=== PATIENT | female | born 1985 | race American Indian/Alaskan Native ===

== ENCOUNTER 2019-02-26 13:06 | Inpatient (IN) | payer MEDICAID ==
[2019-02-26] MEDS ORDERED: BRETHINE IVP PRN (15:13)
[2019-02-26] MEDS ORDERED: XYLOCAINE 2% INFILTRATI ONE (15:13)
[2019-02-26] MEDS ORDERED: MINERAL OIL PO PRN (15:13)
[2019-02-26] MEDS ORDERED: SUBLIMAZE IV PRN (15:13)
[2019-02-26] MEDS ORDERED: BRETHINE SUB-Q PRN (15:13)
--- NOTE | 2019-02-26 15:18 | History and Physical Report ---
History of Present Illness Date of examination: 02/26/19 Date of admission: 02/26/19 13:06 Chief complaint: HERE FOR IOL FOR POST DATES History of present illness: PT PRESENTS FOR IOL FOR POST DATES. SHE HAS NO C/O AT THIS TIME. HAS NOT BEEN COMPLICATED. EDC Calculations LMP: 02/16/2019 EDC Confirmation: 02/16/2019 Gestational Age: 11 5/7 weeks Past History : 6 Term Births: 2 Premature Births: 0 Living Children: 2 Para: 2 Mult. Births: 0 Prev : 0 Aborta: 3 Elect. Ab: 3 # 1 Delivery date: 2006 Weeks Gestation: term Delivery type: Anesthesia type: epidural Delivery location: [place] Infant Sex: Female weight: 7#6 # 2 Delivery date: 2009 Weeks Gestation: term Delivery type: Delivery location: [place] Sex: Male weight: 8#7 # 3 Delivery date: 2011 Weeks Gestation: 6 Delivery type: EAB # 4 Delivery date: 2013 Weeks Gestation: 6 Delivery type: EAB # 5 Delivery date: 2017 Weeks Gestation: 6 Delivery type: EAB Past Medical History: Abnormal Pap Smear: + HVP [facility] 10/2017 Past Surgical History: Negative Past Surgical History Past Medical History 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 of genital herpes: no Partner hx. of genital herpes: no Rash, Viral, or Febrile illness since last LMP? no Varicella/Chicken Pox Status: Unknown Genetic History Congenital Heart Defect: Mom: no Dad: no Nakita Disease: Mom: no Dad: no Thalassemia Mom: no Dad: no Neural Tube Defect Mom: no Dad: no Down's Syndrome Mom: no Dad: no Aquilino-Sachs Mom: no Dad: no Sickle Cell Disease/Trait Mom: no Dad: no Hemophilia Mom: no Dad: no Muscular Dystrophy Mom: no Dad: no Cystic Fibrosis Mom: no Dad: no [place] Chorea Mom: no Dad: no Mental Retardation Mom: no Dad: no Fragile X Mom: no Dad: no Other Genetic/Chromosomal Disorder Mom: no Dad: no Child w/other defect Mom: no Dad: no Enviromental Exposures Xray Exposure: no Medication, drug, or alcohol use since LMP: no Chemical/Other Exposure: no Exposure to Cat Liter: no Hx of Parvovirus (Fifth Disease): no Occupational Exposure to Children: none Active Medications (reviewed today): None Current Allergies (reviewed today): No known allergies Past History Past Medical History: no pertinent history 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 Family/Genetic History: diabetes, other (BREAST CA-MOTHER) Social history: no significant social history - Obstetrical History Expected Date of Delivery: 02/16/19 Actual Gestation: 41 Week(s) 3 Day(s) : 6 Para: 2 Hx # Term Pregnancies: 2 Number of Pregnancies: 0 Spontaneous Abortions: 0 Induced : 3 Number of Living Children: 2 Medications and Allergies Allergies Allergy/AdvReac Type Severity Reaction Status Date / Time coconut oil Allergy Swelling Verified 01/14/15 17:30 Home Medications Medication Instructions Recorded Confirmed Last Taken Type No Known Home Medications [No 05/21/15 05/21/15 Unknown History Reported Home Medications] Review of Systems All systems: negative - Physical Exam Lungs: Positive: Normal air movement Abdomen: Positive: normal appearance, soft. Negative: distention, tenderness, guarding Genitourinary (Female): Positive: normal external genitalia, normal perenium. Negative: perineal/vulvar lesions Vulva: both: normal Deep Tendon Reflex Grade: Normal +2 - Obstetrical FHR: category 1 Cervical Dilatation: 4.5 Cervical Effacement Percentage: 60 station: -1 Uterine Contraction Pattern: Irregular Uterine Tone Measurement Phase: Resting Uterine Contraction Intensity: Mild Results All other labs normal. Assessment and Plan - Patient Problems (1) 41 weeks gestation of Current Visit: Yes Status: Acute Plan to address problem: -ADMITTED FOR POST DATES IOL -IOL D/W PT AND QUESTIONS WERE ADDRESSED AND ANSWERED -START PITOCIN -MEMBRANE SWEEP DONE ON EXAM -GBS NEGATIVE
[2019-02-26] MEDS ORDERED: PITOCin/NS 30 UNIT/500ML 30 UNITS/500 ML BAG IV SCH ×2 (16:00)
[2019-02-26] MEDS ORDERED: LACTATED RINGERS 1,000 ML IV SCH (16:00)
[2019-02-26] MEDS ORDERED: PITOCin/NS 20 UNIT/1000ML DRIP 20 UNITS/1,000 ML BAG IV SCH (16:00)
[2019-02-26 16:14] LABS: Hematocrit 27.2 % (30.3-42.9); Hemoglobin 8.9 gm/dl (10.1-14.3); Mean Corpuscular HGB Conc 33 % (30-34); Mean Corpuscular Volume 83 fl (79-97); Platelet Count 193 K/mm3 (140-440); Red Cell Distribution Width 16.9 % (13.2-15.2)
[2019-02-26] MEDS ORDERED: MARCAINE 0.5% INFILTRATI ONE (18:32)
[2019-02-26] MEDS ORDERED: NARCAN 2 MG/2 ML IV PRN (19:52)
--- NOTE | 2019-02-26 19:52 | Anesthesia Consultation ---
Anesthesia Consult and Med Hx Date of service: 02/26/19 - Airway Anesthetic Teeth Evaluation: Good ROM Head & Neck: Adequate Mental/Hyoid Distance: Adequate Mallampati Class: Class II Intubation Access Assessment: Good - Pulmonary Exam CTA: Yes - Cardiac Exam Cardiac Exam: RRR - Pre-Operative Health Status ASA Pre-Surgery Classification: ASA2 Proposed Anesthetic Plan: Epidural - Pulmonary Hx Asthma: No COPD: No Hx Pneumonia: No - Cardiovascular System Hx Hypertension: No - Central Nervous System Hx Seizures: No Hx Psychiatric Problems: No - Endocrine Hx Renal Disease: No Hx End Stage Renal Disease: No Hx Hypothyroidism: No Hx Hyperthyroidism: No - Hematic Hx Anemia: No Hx Sickle Cell Disease: No
[2019-02-26] MEDS ORDERED: fentaNYL-BUPIV 2 MCG/ML-0.125% 200 MCG/100 ML BAG EPIDURAL SCH (20:00)
--- NOTE | 2019-02-26 21:17 | Progress Note ---
Assessment and Plan - Patient Problems (1) 41 weeks gestation of Current Visit: Yes Status: Acute Plan to address problem: -pitocin only now is being increased and is only on 8mu -con't to increase -epidural in place -anticipate Subjective - Subjective Date of service: 02/26/19 Principal diagnosis: 41 weeks here for iol Interval history: Pt is comfortable with epidural in place. No c/o. Patient reports: new complaints, loss of fluid, movement normal Objective - Vital Signs Vital Signs: Vital Signs - 12hr 02/26/19 02/26/19 02/26/19 15:25 15:29 15:45 Temperature Pulse Rate 73 77 70 Respiratory Rate Blood Pressure 92/60 91/54 101/61 O2 Sat by Pulse Oximetry 02/26/19 02/26/19 02/26/19 16:05 16:14 17:07 Temperature 98.3 F Pulse Rate 74 79 Respiratory Rate Blood Pressure 92/60 90/50 O2 Sat by Pulse Oximetry 02/26/19 02/26/19 02/26/19 17:09 17:15 17:31 Temperature Pulse Rate 63 64 70 Respiratory Rate Blood Pressure 106/70 105/77 115/73 O2 Sat by Pulse Oximetry 02/26/19 02/26/19 02/26/19 17:46 18:00 18:15 Temperature Pulse Rate 72 60 65 Respiratory Rate Blood Pressure 112/62 108/69 126/72 O2 Sat by Pulse Oximetry 02/26/19 02/26/19 02/26/19 18:31 18:42 18:47 Temperature Pulse Rate 80 97 H 73 Respiratory Rate Blood Pressure 127/79 O2 Sat by Pulse 97 100 Oximetry 02/26/19 02/26/19 02/26/19 18:52 18:54 18:57 Temperature Pulse Rate 62 100 H 63 Respiratory Rate Blood Pressure 128/89 109/57 O2 Sat by Pulse 100 89 87 Oximetry 02/26/19 02/26/19 02/26/19 19:00 19:02 19:03 Temperature Pulse Rate 77 67 68 Respiratory Rate Blood Pressure 93/70 105/63 O2 Sat by Pulse 99 Oximetry 02/26/19 02/26/19 02/26/19 19:06 19:12 19:17 Temperature Pulse Rate 81 63 67 Respiratory Rate Blood Pressure 97/57 O2 Sat by Pulse 94 100 100 Oximetry 02/26/19 02/26/19 02/26/19 19:18 19:22 19:27 Temperature Pulse Rate 72 59 L 67 Respiratory Rate Blood Pressure 103/59 O2 Sat by Pulse 91 98 100 Oximetry 02/26/19 02/26/19 02/26/19 19:30 19:32 19:34 Temperature Pulse Rate 61 63 88 Respiratory Rate Blood Pressure 116/62 O2 Sat by Pulse 100 78 L Oximetry 02/26/19 02/26/19 02/26/19 19:37 19:39 19:42 Temperature Pulse Rate 81 73 60 Respiratory Rate Blood Pressure 108/69 O2 Sat by Pulse 85 100 Oximetry 02/26/19 02/26/19 02/26/19 19:43 19:44 19:47 Temperature Pulse Rate 73 75 73 Respiratory Rate Blood Pressure 107/72 O2 Sat by Pulse 88 99 Oximetry 02/26/19 02/26/19 02/26/19 19:48 19:52 19:54 Temperature Pulse Rate 83 82 67 Respiratory Rate Blood Pressure 103/61 93/54 O2 Sat by Pulse 98 Oximetry 02/26/19 02/26/19 02/26/19 19:57 19:58 20:02 Temperature Pulse Rate 87 68 76 Respiratory Rate Blood Pressure 94/55 O2 Sat by Pulse 98 99 Oximetry 02/26/19 02/26/19 02/26/19 20:04 20:07 20:10 Temperature Pulse Rate 66 75 67 Respiratory Rate Blood Pressure 101/59 103/54 O2 Sat by Pulse 97 Oximetry 02/26/19 02/26/19 02/26/19 20:12 20:13 20:16 Temperature Pulse Rate 90 93 H 82 Respiratory 22 Rate Blood Pressure 89/56 103/60 O2 Sat by Pulse 96 Oximetry 02/26/19 02/26/19 02/26/19 20:17 20:22 20:23 Temperature Pulse Rate 93 H 86 93 H Respiratory Rate Blood Pressure 99/62 O2 Sat by Pulse 98 98 Oximetry 02/26/19 02/26/19 02/26/19 20:27 20:31 20:32 Temperature Pulse Rate 65 64 113 H Respiratory Rate Blood Pressure O2 Sat by Pulse 99 92 96 Oximetry 02/26/19 02/26/19 02/26/19 20:34 20:37 20:40 Temperature Pulse Rate 68 55 L 54 L Respiratory Rate Blood Pressure 104/63 101/64 O2 Sat by Pulse 99 Oximetry 02/26/19 02/26/19 02/26/19 20:42 20:44 20:47 Temperature Pulse Rate 66 63 68 Respiratory Rate Blood Pressure 170/70 O2 Sat by Pulse 99 99 Oximetry 02/26/19 02/26/19 02/26/19 20:49 20:52 20:53 Temperature Pulse Rate 59 L 88 76 Respiratory Rate Blood Pressure 94/55 91/53 O2 Sat by Pulse 99 Oximetry 02/26/19 02/26/19 02/26/19 20:57 20:59 21:02 Temperature Pulse Rate 66 62 62 Respiratory Rate Blood Pressure 100/64 O2 Sat by Pulse 99 79 L 100 Oximetry 02/26/19 02/26/19 21:07 21:12 Temperature Pulse Rate 78 63 Respiratory Rate Blood Pressure O2 Sat by Pulse 99 100 Oximetry - Exam FHR: category 1 Cervical Dilatation: 6.5 (arom with clear fluid noted. large amount. head now more applied to the cervix) Cervical Effacement Percentage: 75 station: -1 Uterine Contraction Pattern: Regular Uterine Tone Measurement Phase: Resting Uterine Contraction Intensity: Mild - Labs Labs: Abnormal Labs 02/26/19 15:46 RBC 3.30 L Hgb 8.9 L Hct 27.2 L MCH 27 L RDW 16.9 H Laboratory Results - last 24 hr 02/26/19 02/26/19 15:46 15:46 WBC 6.1 RBC 3.30 L Hgb 8.9 L Hct 27.2 L MCV 83 MCH 27 L MCHC 33 RDW 16.9 H Plt Count 193 Blood Type O POSITIVE Antibody Screen TNR JAREK Antibody Screen Negative
[2019-02-26] MEDS ORDERED: METHERGINE IM ONE ×2 (23:31)
--- NOTE | 2019-02-26 23:43 | Procedure Note ---
OB Delivery Note - Delivery Date of Delivery: 02/26/19 Surgeon: ERMIAS FONTANEZ Estimated blood loss: other (400) - Vaginal Delivery presentation: vertex Delivery position: OA Intrapartum events: uterine atony (relieved with 30 units of pitocin infusing and methergine 0.2mg im times one dose), other(please specify) (change in baseline from 120s to 110s prior to delivery with varible decels noted pt was 10cm at this time) Delivery induction: oxytocin Delivery augmentation: rupture of membranes, pitocin Delivery monitor: external FHT, external uterine Route of delivery: Delivery placenta: spontaneous (intact) Episiotomy: none Delivery laceration: 2nd degree (perineal and periuretral) Delivery repair: vicryl (3-0) Anesthesia: epidural Delivery comments: Delivery as above. With two pushes pt delivered a live born male infant. Ant shoulder and rest of infant delivered w/o difficulty. There was no shoulder dystocia. Infant was placed on maternal abdomen. Cord was clamped x2 after pulsation was no longer palpated. Cord cut by fob. Cord blood was collected. Placenta delivered spontaneously intact. After delivery of placenta pt was noted to have atony of the lower uterine segment relieved with above measures. Repairs done in usual fashion. EBL 400ml - A at 1 minute: 8 at 5 minutes: 9 Infant Gender: Male (8lbs 12oz)
[2019-02-27] MEDS ORDERED: BENADRYL PO PRN (00:03)
[2019-02-27] MEDS ORDERED: ZOFRAN IV PRN (00:03)
[2019-02-27] MEDS ORDERED: LANSINOH TP PRN (00:03)
[2019-02-27] MEDS ORDERED: TYLENOL PO PRN (00:03)
[2019-02-27] MEDS ORDERED: PHENERGAN PO PRN (00:03)
[2019-02-27] MEDS ORDERED: DULCOLAX PR PRN (00:03)
[2019-02-27] MEDS ORDERED: MILK OF MAGNESIA PO PRN (00:03)
[2019-02-27] MEDS ORDERED: TUCKS PAD TP PRN (00:03)
[2019-02-27] MEDS ORDERED: SODIUM CHLORIDE FLUSH SYRINGE 10 ML IV PRN (01:00)
[2019-02-27] MEDS ORDERED: PITOCin/NS 20 UNIT/1000ML DRIP 20 UNITS/1,000 ML BAG IV SCH (01:00)
[2019-02-27] MEDS: IBUPROFEN PO SCH ×2 (01:57→23:37)
[2019-02-27 13:10] LABS: Hematocrit 25.4 % (30.3-42.9); Hemoglobin 8.2 gm/dl (10.1-14.3)
--- NOTE | 2019-02-27 13:21 | Progress Note ---
Assessment and Plan PPD1 s/p . Patient reports feeling well, she denies any complaints or concerns at this time. Fundus is firm, ML, U/1. Vaginal bleeding is small, patient denies any clots or heavy bleeding. She reports pain is well controlled with medications. She reports breast feeding is going well, infant is doing well. Will monitor for results of post delivery H&H. VSSAF. Continue POC. Plan for discharge tomorrow morning. Subjective - Subjective Date of service: 02/27/19 Principal diagnosis: PPD1 s/p Patient reports: appetite normal, voiding normally, pain well controlled, ambulating normally [place]: doing well Objective - Vital Signs Latest vital signs: Vital Signs Temp Pulse Resp BP BP Pulse Ox 02/27/19 11:59 98.3 F 73 18 98/54 98 02/27/19 08:13 97.7 F 82 18 103/40 97 02/27/19 01:32 99.3 F 77 20 105/65 100 02/27/19 00:25 61 111/69 02/27/19 00:20 67 108/56 02/27/19 00:15 64 106/65 02/27/19 00:06 61 114/59 02/27/19 00:00 71 109/57 02/26/19 23:44 81 122/59 02/26/19 23:30 64 103/62 02/26/19 23:20 76 49 L 02/26/19 23:17 70 78 L 02/26/19 23:15 112 H 119/72 88 02/26/19 23:12 73 100 02/26/19 23:07 59 L 99 02/26/19 23:02 61 99 02/26/19 23:00 63 100/67 02/26/19 22:57 58 L 99 02/26/19 22:52 58 L 100 02/26/19 22:47 59 L 100 02/26/19 22:46 58 L 115/65 02/26/19 22:42 62 100 02/26/19 22:37 68 99 02/26/19 22:32 69 98 02/26/19 22:30 58 L 113/74 02/26/19 22:27 56 L 100 02/26/19 22:24 65 93 02/26/19 22:22 59 L 100 02/26/19 22:17 64 99 06/05/19 22:15 96 H 106/69 02/26/19 22:12 60 99 02/26/19 22:07 57 L 99 02/26/19 22:02 62 98 02/26/19 22:00 66 96/63 02/26/19 21:57 57 L 100 02/26/19 21:52 55 L 98 02/26/19 21:47 74 99 02/26/19 21:42 63 99 02/26/19 21:37 59 L 100 02/26/19 21:32 70 100 02/26/19 21:31 76 86 02/26/19 21:29 55 L 110/58 02/26/19 21:27 73 99 02/26/19 21:22 66 99 02/26/19 21:17 65 100 02/26/19 21:16 90 123/54 02/26/19 21:15 57 L 18 92 02/26/19 21:12 63 100 02/26/19 21:07 78 99 02/26/19 21:02 62 100 02/26/19 20:59 62 100/64 79 L 02/26/19 20:57 66 99 02/26/19 20:53 76 91/53 02/26/19 20:52 88 99 02/26/19 20:49 59 L 94/55 02/26/19 20:47 68 99 02/26/19 20:45 98.6 F 18 02/26/19 20:44 63 170/70 02/26/19 20:42 66 99 02/26/19 20:40 54 L 101/64 02/26/19 20:37 55 L 99 02/26/19 20:34 68 104/63 02/26/19 20:32 113 H 96 02/26/19 20:31 64 92 02/26/19 20:27 65 99 02/26/19 20:23 93 H 99/62 02/26/19 20:22 86 98 02/26/19 20:17 93 H 98 02/26/19 20:16 82 103/60 02/26/19 20:15 20 02/26/19 20:13 93 H 22 89/56 02/26/19 20:12 90 96 02/26/19 20:10 67 103/54 02/26/19 20:07 75 97 02/26/19 20:04 66 101/59 05 20:02 76 99 06 19:58 68 94/55 05 19:57 87 98 02/26/19 19:54 67 93/54 02/26/19 19:52 82 98 02/26/19 19:48 83 103/61 05 19:47 73 99 02/26/19 19:45 98.6 F 20 02/26/19 19:44 75 88 05 19:43 73 107/72 02/26/19 19:42 60 100 02/26/19 19:39 73 108/69 02/26/19 19:37 81 85 02/26/19 19:34 88 78 L 02/26/19 19:32 63 100 02/26/19 19:30 61 116/62 02/26/19 19:27 67 103/59 100 02/26/19 19:22 59 L 98 02/26/19 19:18 72 91 02/26/19 19:17 67 100 02/26/19 19:12 63 100 02/26/19 19:06 81 97/57 94 02/26/19 19:03 68 105/63 02/26/19 19:02 67 99 02/26/19 19:00 77 93/70 02/26/19 18:57 63 109/57 87 02/26/19 18:54 100 H 128/89 89 02/26/19 18:52 62 100 02/26/19 18:47 73 100 02/26/19 18:42 97 H 97 02/26/19 18:31 80 127/79 05 18:15 65 126/72 02/26/19 18:00 60 108/69 05 17:46 72 112/62 0519 17:31 70 115/73 0519 17:15 64 105/77 05 17:09 63 106/70 05 17:07 98.3 F 02/26/19 16:14 79 90/50 060519 16:05 74 92/60 060519 15:45 70 101/61 0605/19 15:29 77 91/54 02/09 15:25 73 92/60 Intake and Output 02/26/19 02/27/19 02/27/19 23:59 07:59 15:59 Intake Total 240 Output Total 600 Balance -360 Intake: Oral 240 Output: Urine 600 Void 600 Other: Total, Intake Amount 240 Total, Output Amount 600 Estimated Blood Loss 350 - Exam Breasts: Present: normal Cardiovascular: Present: Regular rate, Normal S1, Normal S2 Lungs: Present: Clear to auscultation, Normal air movement Abdomen: Present: normal appearance, soft, normal bowel sounds Vulva: both: normal Uterus: Present: normal, firm, fundal height below umbilicus Extremities: Present: normal Deep Tendon Reflex Grade: Normal +2 - Labs Labs: Abnormal lab results 02/26/19 02/27/19 Range/Units 15:46 12:25 RBC 3.30 L (3.65-5.03) M/mm3 Hgb 8.9 L 8.2 L (10.1-14.3) gm/dl Hct 27.2 L 25.4 L (30.3-42.9) % MCH 27 L (28-32) pg RDW 16.9 H (13.2-15.2) %
[2019-02-28] MEDS: IBUPROFEN PO SCH ×2 (05:26→13:28)
--- NOTE | 2019-02-28 09:25 | Discharge Summary ---
Providers - Providers Date of Admission: 02/26/19 13:06 Date of discharge: 02/28/19 Attending physician: ERMIAS FONTANEZ Primary care physician: ERMIAS FONTANEZ Hospitalization Reason for admission: IOL postdates Condition: Good Pertinent studies: post delivery H&H 8.2/25.4. Pre-existing anemia noted on admission. Patient is asymptomatic. Procedures: Hospital course: uncomplicated delivery and course Disposition: - TO HOME OR SELFCARE Core Measure Documentation - Palliative Care Palliative Care/ Comfort Measures: Not Applicable - Core Measures Any of the following diagnoses?: none Exam - Constitutional Vitals: Temp Pulse Resp BP Pulse Ox 97.7 F 61 20 89/54 98 02/28/19 02:33 02/28/19 02:33 02/28/19 02:33 02/28/19 02:33 02/28/19 02:33 General appearance: Present: no acute distress, well-nourished - EENT Eyes: Present: PERRL ENT: hearing intact, clear oral mucosa - Neck Neck: Present: supple, normal ROM - Respiratory Respiratory effort: normal Respiratory: bilateral: CTA - Cardiovascular Rhythm: regular Heart Sounds: Present: S1 & S2. Absent: rub, click - Extremities Extremities: pulses symmetrical, No edema Peripheral Pulses: within normal limits - Abdominal General gastrointestinal: Present: soft, non-tender, non-distended, normal bowel sounds Female genitourinary: Present: normal - Integumentary Integumentary: Present: clear, warm, dry - Musculoskeletal Musculoskeletal: gait normal, strength equal bilaterally - Psychiatric Psychiatric: appropriate mood/affect, intact judgment & insight - Neurologic Neurologic: CNII-XII intact, moves all extremities Plan Activity: no restrictions Diet: regular Follow up with: ERMIAS FONTANEZ MD [Primary Care Provider] - 03/28/19 (Congratulations! Please call [phone] to schedule your appointment in 4 weeks. Please schedule your son's circumcision appointment in our office in 1 week. Bring EMLA cream with you to his appointment. Call with any questions or concerns. ) Prescriptions: Docusate Sodium [Colace] 100 mg PO BID PRN #60 capsule PRN Reason: Constipation Lidocain2.5%/Prilocai2.5% [Emla] 5 gm TP ONCE #1 tube Ferrous Sulfate [Feosol 325 MG tab] 325 mg PO BID #60 tablet
[2019-02-28] MEDS ORDERED: FEOSOL PO SCH (10:00)
[2019-02-28] MEDS ORDERED: COLACE PO SCH (10:00)
[2019-02-28 14:53] VITALS: BP 96/64
== END 2019-02-28 16:50 | disposition home or self-care (01) | DRG 775 ==
LOC: LD 13:06 → OB 02-27 01:38
PROVIDERS: ADMIT Obstetrics & Gynecology; ATTEND Obstetrics & Gynecology
PROC: 10E0XZZ Delivery of Products of Conception, External Approach (ICD-10-PCS; principal; 2019-02-26)
PROC: 0KQM0ZZ Repair Perineum Muscle, Open Approach (ICD-10-PCS; 2019-02-26)
PROC: 3E033VJ Introduction of Other Hormone into Peripheral Vein, Percutaneous Approach (ICD-10-PCS; 2019-02-26)
PROC: 3E0R3BZ Introduction of Anesthetic Agent into Spinal Canal, Percutaneous Approach (ICD-10-PCS; 2019-02-26)
PROC: 00HU33Z Insertion of Infusion Device into Spinal Canal, Percutaneous Approach (ICD-10-PCS; 2019-02-26)
DX: O48.0 Post-term pregnancy (principal); O62.2 Other uterine inertia; O76 Abnormality in fetal heart rate and rhythm complicating labor and delivery; O70.1 Second degree perineal laceration during delivery; O99.02 Anemia complicating childbirth; D64.9 Anemia, unspecified; Z37.0 Single live birth; Z3A.41 41 weeks gestation of pregnancy
CPT/HCPCS: 36415; 85014; 85018; 85027; 86592; 86850; 86900; 86901; 96374; G0378; J2210; J2405; J2590; J3010; J7120

== ENCOUNTER 2019-04-18 05:55 | Day surgery (SDC) | payer MEDICAID ==
--- NOTE | 2019-04-14 16:47 | History and Physical Report ---
History of Present Illness Date of examination: 04/11/19 Date of admission: 04/18/2019 Chief complaint: here for tubal ligation History of present illness: Visit Type: Pre-Op CC: pre op. History of Present Illness: pt presents for pre op visit: [place] All risk/benefits/alternatives were d/w pt and questions were addressed and answered. Consents were signed and placed on the chart. I d/w salpingectomy vs placement of felshi clips and she desire salpingectomy. Vital Signs: Patient Profile: 34 Years Old Female Height: 63 inches Weight: 199 pounds BMI: 35.25 BP sittin / 84 (left arm) Menstrual History: LMP - Character: no period since del Current Method of Contraception: Abstinence Date of Last Pap Smear: 12/25/2018 Past History : 6 Term Births: 3 Premature Births: 0 Living Children: 3 Para: 3 Mult. Births: 0 Prev : 0 Aborta: 3 Elect. Ab: 3 # 1 Delivery date: 2006 Weeks Gestation: term Delivery type: Anesthesia type: epidural Delivery location: [place] Sex: Female weight: 7#6 # 2 Delivery date: 2009 Weeks Gestation: term Delivery type: Delivery location: [place] Sex: Male weight: 8#7 # 3 Delivery date: 2011 Weeks Gestation: 6 Delivery type: EAB # 4 Delivery date: 2013 Weeks Gestation: 6 Delivery type: EAB # 5 Delivery date: 2017 Weeks Gestation: 6 Delivery type: EAB # 6 Delivery date: 02/26/2019 Weeks Gestation: 41 Delivery type: Vaginal Anesthesia type: epidural Delivery location: [facility] Sex: male weight: 8.75 Comments: none APPLICATIONS MANAGER History Uterine Surgery (not C/S): negative Operations: Negative Past Surgical History Hospitalizations: negative Anesthesia Complications: negative Abnormal PAP: positive, 10/2017 Uterine Anomaly: negative CHLOE Exposure: negative Infertility: negative Infection History HIV Risk Eval: no Personal hx. of genital herpes: no Partner hx. of genital herpes: no Hx of STD: chlamydia Active Medications (reviewed today): FERROUS SULFATE 325 (65 FE) MG ORAL TABLET (FERROUS SULFATE) 1 po BID BONJESTA 20-20 MG ORAL TABLET EXTENDED RELEASE (DOXYLAMINE-PYRIDOXINE) 1 PO Q HS Current Allergies (reviewed today): No known allergies Past Medical History: Reviewed history from 08/02/2018 and no changes required: Abnormal Pap Smear: + [facility] 10/2017 Past Surgical History: Reviewed history from 08/02/2018 and no changes required: Negative Past Surgical History Family History Summary: Reviewed history and no changes required: 04/15/2019 General Comments - FH: mother - breast CA father - DM Social History: Reviewed history from 08/02/2018 and no changes required: Single Works for [employer] no etoh/smoking/drugs Risk Factors: Smoked Tobacco Use: Never smoker Smokeless Tobacco Use: Never Drug use: no HIV high-risk behavior: no Exercise: no Seatbelt use: 100 % PAP Smear History: Date of Last PAP Smear: 12/25/2018 Review of Systems General Denies fever, chills, sweats, anorexia, fatigue, weakness, malaise, weight loss and sleep disorder. Denies nausea, vomiting, headache, swelling of legs, abdominal pain, vaginal discharge, vaginal bleeding and contractions. Denies vaginal discharge, incontinence, dysuria, hematuria, urinary frequency, amenorrhea, menorrhagia, abnormal vaginal bleeding, pelvic pain, genital sores, decreased libido, painful periods, painful sex, urinary urgency, hot flashes, vaginal dryness, vaginal itching and vaginal odor. CV Denies chest pains, palpitations, syncope, dyspnea on exertion, orthopnea, PND and peripheral edema. Resp Denies cough, dyspnea at rest, excessive sputum, hemoptysis, wheezing and pleurisy. GI Denies nausea, vomiting, diarrhea, constipation, change in bowel habits, abdominal pain, melena, hematochezia, jaundice, gas/bloating, indigestion/heartburn, dysphagia and odynophagia. Endo Denies cold intolerance, heat intolerance, polydipsia, polyphagia, polyuria and unusual weight change. Breast Denies left breast lump, right breast lump, nipple discharge, bloody disc harge from nipple, breast pain, abnormal mammogram and breast enlargement. MS Denies back pain, joint pain, joint swelling, muscle cramps, muscle weakness, stiffness, arthritis, sciatica, restless legs, leg pain at night and leg pain with exertion. Derm Denies rash, itching, dryness and suspicious lesions. Neuro Denies paralysis, paresthesias, headache, seizures, tremors, vertigo, transient blindness, frequent falls, frequent headaches and difficulty walking. Psych Denies depression, anxiety, irritability and mood swings. Eyes Denies blurring, diplopia, irritation, discharge, vision loss, eye pain and photophobia. ENT Denies earache, ear discharge, tinnitus, decreased hearing, nasal congestion, nosebleeds, sore throat and hoarseness. Allergy Denies urticaria, allergic rash, hay fever and recurrent infections. Heme Denies abnormal bruising, bleeding and enlarged lymph nodes. [Labs In-House] Physical Exam Appearance: well developed, well nourished, no acute distress Other Exams Lungs: no rales, rhonchi, or wheezes Heart: S1, S2, no murmur, rub, or gallop Abdomen: soft, non-tender, no masses, bowel sounds normal Extremities: normal alignment, no joint enlargement, crepitus, masses or tenderness; normal tone and strength Genitourinary Exam Comments: deferred until eua [Problems-CCC] Impression & Recommendations: Problem # 1: Sterilization (ICD-V25.2) (TSS93-B75.2) Orders: Ofc Vst Est 55011 ([id number]) Past History Past Medical History: other (see hpi) Past Surgical History: other (see hpi) APPLICATIONS MANAGER History: other (see hpi) Family/Genetic History: other (see hpi) Social history: other (see hpi) - Obstetrical History : 6 Para: 3 Number of Living Children: 3 Medications and Allergies Allergies Allergy/AdvReac Type Severity Reaction Status Date / Time coconut Allergy Anaphylaxis Verified 04/11/19 16:59 Home Medications Medication Instructions Recorded Confirmed Last Taken Type Ferrous Sulfate [Feosol 325 MG tab] 325 mg PO BID #60 tablet 02/28/19 04/11/19 Unknown Rx Ibuprofen [Motrin 800 MG tab] 800 mg PO Q6HR PRN #30 tablet 04/15/19 Unknown Rx oxyCODONE /ACETAMINOPHEN [Percocet 1 tab PO Q4HR #30 tab 04/15/19 Unknown Rx 5/325] Review of Systems All systems: negative - Physical Exam Cardiovascular: Normal S1, Normal S2 Lungs: Positive: Clear to auscultation, Normal air movement Abdomen: Positive: normal appearance, soft. Negative: distention, tenderness, guarding Genitourinary (Female): Positive: other (deferred) Extremities: Positive: normal. Negative: tenderness, edema Deep Tendon Reflex Grade: Normal +2 Results All other labs normal. Assessment and Plan - Patient Problems (1) Sterilization Status: Acute Plan to address problem: -admit and prepare for BTL/salpingectomy -consent signed and given pt to present at time of pre op apt
[~2019-04-18 05:55] MED LIST: ANCEF/STERILE WATER 2 GM/20 ML 2 GM/20 ML SYRINGE IV NR
[2019-04-18] MEDS ORDERED: TRANSDERM-SCOP TD NR (06:00)
[2019-04-18] MEDS ORDERED: LACTATED RINGERS 1,000 ML IV SCH (06:00)
[2019-04-18] MEDS ORDERED: VERSED IV NR (06:00)
[2019-04-18] MEDS ORDERED: NEURONTIN PO NR (06:00)
[2019-04-18] MEDS ORDERED: ANCEF/STERILE WATER 2 GM/20 ML 2 GM/20 ML SYRINGE IV NR (06:00)
[2019-04-18] MEDS ORDERED: NACL BACTERIOSTATIC INFILTRATI ONE (06:36)
[2019-04-18] MEDS ORDERED: MARCAINE 0.5% INFILTRATI ONE ×2 (06:46→08:33)
--- NOTE | 2019-04-18 07:26 | Anesthesia Day of Surgery ---
Anesthesia Day of Surgery - Day of Surgery Patient Examined: Yes Patient H&P Reviewed: Yes Patient is NPO: Yes
--- NOTE | 2019-04-18 07:26 | Anesthesia Consultation ---
Anesthesia Consult and Med Hx Date of service: 04/18/19 - Airway Anesthetic Teeth Evaluation: Good ROM Head & Neck: Adequate Mental/Hyoid Distance: Adequate Mallampati Class: Class II Intubation Access Assessment: Probably Good - Pulmonary Exam CTA: Yes - Cardiac Exam Cardiac Exam: RRR - Pre-Operative Health Status ASA Pre-Surgery Classification: ASA1 Proposed Anesthetic Plan: General - Pulmonary Hx Smoking: No Hx Respiratory Symptoms: No Hx Sleep Apnea: No - Cardiovascular System Hx Hypertension: No Hx Heart Attack/AMI: No Hx Percutaneous Transluminal Coronary Angioplasty (PTCA): No - Central Nervous System Hx Seizures: No CVA: No Hx Psychiatric Problems: No - Gastrointestinal Hx Gastroesophageal Reflux Disease: No - Endocrine Hx Renal Disease: No Hx Liver Disease: No Hx Insulin Dependent Diabetes: No Hx Non-Insulin Dependent Diabetes: No Hx Thyroid Disease: No - Hematic Hx Anemia: Yes - Other Systems Hx Obesity: Yes - Additional Comments Anesthesia Medical History Comments: No hx anesthetic complications. Not currently .
[2019-04-18 07:28] LABS: Hemoglobin 11.1 gm/dl (10.1-14.3); Red Blood Count 3.86 M/mm3 (3.65-5.03)
[2019-04-18 07:29] LABS: Hematocrit 33.3 % (30.3-42.9); Mean Corpuscular HGB Conc 33 % (30-34); Mean Corpuscular Volume 86 fl (79-97); Platelet Count 211 K/mm3 (140-440); Red Cell Distribution Width 20.6 % (13.2-15.2)
[2019-04-18] MEDS ORDERED: ZOFRAN ONE ×2 (07:38→11:24)
[2019-04-18] MEDS ORDERED: DECADRON ONE (07:38)
[2019-04-18] MEDS ORDERED: DIPRIVAN 10 MG/ML IV ONE (07:38)
[2019-04-18] MEDS ORDERED: SUBLIMAZE ONE (07:39)
[2019-04-18] MEDS ORDERED: NACL 0.9% IR ONE (08:33)
[2019-04-18] MEDS ORDERED: BRIDION IV ONE (08:39)
--- NOTE | 2019-04-18 08:48 | Short Stay Summary ---
Short Stay Documentation Date of service: 04/18/19 - History H&P: dictated Social history: other (see hpi) - Allergies and Medications Current Medications: Allergies coconut Allergy (Verified 04/11/19 16:59) Anaphylaxis Home Medications Medication Instructions Recorded Confirmed Last Taken Type RX: Ferrous Sulfate [Feosol 325 MG 325 mg PO BID #60 tablet 02/28/19 04/18/19 04/17/19 14:00 Rx tab] RX: Ibuprofen [Motrin 800 MG tab] 800 mg PO Q6HR PRN #30 tablet 04/15/19 Unknown Rx oxyCODONE /ACETAMINOPHEN [Percocet 1 tab PO Q4HR #30 tab 04/15/19 Unknown Rx 5/325] Active Medications Celecoxib (Celebrex) 200 mg PO PREOP NR Stop: 04/18/19 23:59 Last Admin: 04/18/19 07:35 Dose: 200 mg Documented by: Gabapentin (Neurontin) 300 mg PO PREOP NR Stop: 04/18/19 23:59 Last Admin: 04/18/19 07:34 Dose: 300 mg Documented by: Hydromorphone HCl (Dilaudid) 0.5 mg IV Q10MIN PRN PRN Reason: Pain , Severe (7-10) Stop: 04/18/19 18:00 Lactated Ringer's (Lactated Ringers) 1,000 mls @ 125 mls/hr IV DIRECT RHINA Last Admin: 04/18/19 06:40 Dose: 125 mls/hr Documented by: Cefazolin Sodium (Ancef/Sterile Water 2 Gm/20 Ml) 2 gm in 20 mls @ 80 mls/hr IV PREOP NR; Protocol Stop: 04/18/19 23:59 Midazolam HCl (Versed) 2 mg IV PREOP NR Stop: 04/18/19 23:59 Last Admin: 04/18/19 07:34 Dose: 2 mg Documented by: Scopolamine (Transderm-Scop) 1 each TD PREOP NR Stop: 04/18/19 23:59 Last Admin: 04/18/19 07:34 Dose: 1 each Documented by: - Brief post op/procedure progress note Date of procedure: 04/18/19 Pre-op diagnosis: desires sterilization Post-op diagnosis: same Procedure: The operative report Anesthesia: GETA Findings: See operative report Surgeon: ERMIAS FONTANEZ Estimated blood loss: minimal Pathology: list (portions of left and right fallopian tube) Specimen disposition: to lab Condition: stable - Hospital course Hospital course: She was admitted for above-stated procedure. She will be discharged home if she had met discharge criteria in PACU. Patient will follow-up in the office in 1 w [place] for postoperative visit. - Disposition Condition at discharge: Good Disposition: DC-01 TO HOME OR SELFCARE - Discharge Diagnoses (1) Sterilization Status: Acute Short Stay Discharge Plan Activity: no restrictions Weight Bearing Status: Weight Bear as Tolerated Diet: regular Wound: open to air, keep clean and dry Follow up with: ERMIAS FONTANEZ MD [Primary Care Provider] - 7 Days Forms: Outpatient Surgery DC Inst. Prescriptions: RX: Ibuprofen [Motrin 800 MG tab] 800 mg PO Q6HR PRN #30 tablet PRN Reason: Pain, Moderate (4-6) oxyCODONE /ACETAMINOPHEN [Percocet 5/325] 1 tab PO Q4HR #30 tab
--- NOTE | 2019-04-18 08:48 | Operative Report ---
Operative Report Operative Report: Date of procedure: 04/18/2019 Pre-operative diagnosis: Desires permanent sterilization Post-operative diagnosis: Same Procedure name(s): Laparoscopic Bilateral salpingectomy Surgeon: Dr. Humphreys Plastic Finisher: ELIZABETH Anesthesia: Gen. endotracheal anesthesia EBL: Minimal Urine output: 25 mL of clear urine out at the beginning of the procedure via straight catheterization Fluids: 700 mL Findings: Grossly normal fallopian tubes and ovaries bilaterally. Functional cysts noted on the left ovary approximately 1 cm. Normal uterus. Small point of perforation in the posterior aspect of the uterus noted to be completely hemostatic at the end of the procedure. Indications: Patient presents requesting permanent sterilization. Various methods of sterilization were discussed with the patient. All risks benefits and alternatives were discussed with patient. Patient desired bilateral subjective me. Procedure: Patient was taken to the operating room and which she was placed under general endotracheal anesthesia. Patient was then prepped and draped in sterile fashion and placed in dorsal lithotomy position in Bernabe stirrups. Attention was then turned to the vagina in which a Humi uterine manipulator was placed. Patient underwent straight catheterization. Attention was then turned to the umbilicus and which an infraumbilical incision was made with the scalpel 5mm trocar was placed using direct visualization with the camera. Abdomen was then insufflated with gas. Under direct visualization a 5 mm and 8 mm trocar were placed. Left fallopian tube was grasp with a grasper elevated cauterized and transected with the tripolar instrument and handed off for pathology. This was repeated on the right side. After tubal ligation was completed all instruments were removed from the abdomen under direct visualization. All gas was also released from the abdomen. The skin was approximated with 4-0 Monocryl in a subcuticular stitch. Incisions were injected with Marcaine without epi. The patient tolerated procedure well. Sponge, lap, and needle counts were all correct x3 the patient was taken to the recovery room awake and in stable condition.
[2019-04-18] MEDS ORDERED: TORADOL ONE (08:50)
[2019-04-18] MEDS ORDERED: ZEMURON IV ONE (08:50)
[2019-04-18] MEDS ORDERED: XYLOCAINE MPF 2% ONE (08:50)
[2019-04-18] MEDS: DILAUDID IV PRN ×2 (09:39→09:55)
[2019-04-18] MEDS ORDERED: PERCOCET 5/325 PO PRN (10:13)
[2019-04-18] MEDS ORDERED: ZOFRAN IV PRN (11:28)
[2019-04-18 11:40] VITALS: BP 110/69
--- NOTE | 2019-04-18 11:52 | Post Anesthesia Evaluation ---
- Post Anesthesia Evaluation Patient Participated: Yes Airway Patent: Yes Stable Respiratory Function: Yes Nausea/Vomiting: No Temp > 96.8F: Yes Pain Manageable: Yes Adequeate Hydration: Yes Anesthesia Complications: No
== END 2019-04-18 11:45 | disposition home or self-care (01) ==
LOC: OR 05:55
PROVIDERS: ATTEND Obstetrics & Gynecology
DX: Z30.2 Encounter for sterilization (principal); N83.8 Other noninflammatory disorders of ovary, fallopian tube and broad ligament; E66.9 Obesity, unspecified; Z79.899 Other long term (current) drug therapy; Z98.890 Other specified postprocedural states; Z68.32 Body mass index [BMI] 32.0-32.9, adult; Z86.2 Personal history of diseases of the blood and blood-forming organs and certain disorders involving the immune mechanism; Z88.8 Allergy status to other drugs, medicaments and biological substances
CPT/HCPCS: 36415; 58670; 81025; 85027; 88302; J0690; J1100; J1170; J1885; J2250; J2405; J2704; J3010; J7120